=== PATIENT | female | born 1980 | race Caucasian/White ===

== ENCOUNTER → 2019-01-19 14:10 | Outpatient (CLI) | payer OTHER ==
--- NOTE | 2019-01-24 14:29 | ST ---
PATIENT:LAMONTE DESOUZA MEDICAL RECORD: [id number] SEX: F LOCATION:[facility] ORDER #: ADMISSION DATE: 01/19/19 AGE OF PATIENT: 38 REFERRING PHYSICIAN: INTERPRETING PHYSICIAN: ROCKY OSBORN MD DATE OF SERVICE: 01/19/2019 PROCEDURE: Treadmill stress test. Baseline ECG is normal. She exercised for 9 minutes on Estuardo protocol. Maximum heart rate 159 beats per minute, greater than 85% of max predicted. No ECG changes of ischemia. No symptoms of ischemia. Normal blood pressure response to exercise. No arrhythmias noted. Good exercise tolerance for age. TRANSINT:[id number] Voice Confirmation ID: [id number] DOCUMENT ID: [id number] ROCKY OSBORN MD at 1429 CC: [id number] DICTATION DATE: 01/23/19 1306 CHIEF MEDICAL PHYSICIST: 01/23/19 1322 DEP CLI 01/19/19 [place] [id number] [place] [address]
== END | disposition home or self-care (01) ==
LOC: D.HCCARDIO 01-18 14:30
PROVIDERS: ATTEND Internal Medicine Interventional Cardiology
DX: R07.9 Chest pain, unspecified (principal)

== ENCOUNTER → 2020-01-24 08:27 | Outpatient (CLI) | payer MEDICAID ==
--- NOTE | ~2020-01-24 | EC ---
PATIENT:LAMONTE DESOUZA DATE OF SERVICE: 01/24/20 SEX: F MEDICAL RECORD: [id number] DATE OF : 82 [facility] AGE OF PATIENT: 39 ADMISSION DATE: 01/24/20 REFERRING PHYSICIAN: INTERPRETING PHYSICIAN: ROCKY OSBORN MD ECHOCARDIOGRAM REPORT ECHO CHARGES 4 ECHO COMPLETE Date: 01/24/20 CLINICAL DIAGNOSIS: MITRAL REGURG ECHOCARDIOGRAPHIC MEASUREMENTS (adult normal given) AC root (d.<3.7cm) 2.5 cm LV Septum d (<1.2 cm> 1.1 cm Valve Excursion 1.0 cm LV Septum (systole) 1.4 cm Left Atria (s.<4.0cm> 3.8 cm LVPW d(<1.2cm) 1.2 cm RV (d.<2.3cm) 3.8 cm LVPW (sytole) 1.5 cm LV diastole(<5.6CM) 4.4 cm MV E-F(>70mm/sec) cm LV systole 2.4 cm LVOT Diameter 1.5 cm MV exc.(>10mm) 1.7 cm Est.ejection fraction (50-75%) % DOPPLER: LVIT cm/sec A 51.0 cm/sec E 97.0 cm/sec LA cm/sec RVSP 31 mmHg LVOT 122 cm/sec AOP1/2T m/s Asc. Ao 138 cm/sec RVOT 90 cm/sec RA cm/sec PA 121 cm/sec AV Gradient Peak 7.64 mmHg AV Mean 3.90 mmHg AV Area 1.8 cm MV Gradient Peak 5.58 mmHg MV Mean 1.30 mmHg MV Area cm COMMENTS: Stereo Equipment Installer: 2 ALEX [place] Mechanical Development Engineer: 3 Dr. Mendez TAPE# PACS Pericardial Effusion N DATE OF SERVICE: Adequate 2D, color flow imaging, spectral Doppler, and M-mode. No LVH. LV internal dimension is normal. Wall motion is normal. EF is greater than or equal to 55%. Aortic valve is tricuspid. No evidence of stenosis by Doppler interrogation. Left atrium is normal at 3.8. Mitral valve shows redundancy of the anterior leaflet, but no true prolapse. Mild MR. Right-sided chambers are grossly normal. Trace to mild TR. ECHOCARDIOGRAM REPORT [id number] LAMONTE DESOUZA NTS:[id number] Voice Confirmation ID: [id number] DOCUMENT ID: [id number] ROCKY OSBORN MD CC: [id number] DICTATION DATE: 01/25/20 144 BROOMMAKING SUPERVISOR: 01/25/202044 DEP CLI 01/24/20 [place] [id number] [place] [id number]
== END | disposition home or self-care (01) ==
LOC: D.HCCECHO 08:27
PROVIDERS: ATTEND Internal Medicine Interventional Cardiology
DX: I34.0 Nonrheumatic mitral (valve) insufficiency (principal)